=== PATIENT | female | born 1985 | race Caucasian/White ===

== ENCOUNTER 2019-05-05 16:32 | Emergency (ER) | payer OTHER, MEDICARE ==
--- NOTE | 2019-05-05 17:15 | RAD ---
Left foot 3 views HISTORY: Left foot injury. FINDINGS: Comminuted predominantly oblique fracture of the fifth metatarsal neck is present with 0.2 cm medial displacement of the major distal fragment. No evidence of intra-articular extension. Lisfranc joint alignment is anatomic. Plantar arch is maintained. Subtle irregular linear lucency extends through the lateral malleolus just below the level of the ank le mortise. IMPRESSION: Fifth metatarsal fracture. Probable nondisplaced fracture of the lateral malleolus. Correlation with point tenderness at the lat eral malleolus is required.
--- NOTE | 2019-05-05 18:39 | RAD ---
Right big toe 3 views HISTORY: Right toe injury. FINDINGS: Possible soft tissue swelling. Joint spaces are preserved. No acute fracture, dislocation, or aggressive osseous erosions. IMPRESSION: No acute osseous abnormalities are demonstrated.
[2019-05-05] MEDS ORDERED: Triple Antibiotic Oint 1 GM Packet ONE (18:58)
== END 2019-05-05 19:18 | disposition home or self-care (01) ==
LOC: ERS 16:32
DX: S92.352A Displaced fracture of fifth metatarsal bone, left foot, initial encounter for closed fracture (principal); S82.62XA Displaced fracture of lateral malleolus of left fibula, initial encounter for closed fracture; S90.211A Contusion of right great toe with damage to nail, initial encounter; F25.9 Schizoaffective disorder, unspecified; F32.9 Major depressive disorder, single episode, unspecified; W06.XXXA Fall from bed, initial encounter

== ENCOUNTER 2019-11-11 18:38 | Emergency (ER) | payer MEDICARE, OTHER ==
[2019-11-11 19:10] LABS: #Basophils 0.1 thou/uL (0.0-0.2); #Monocytes 0.3 thou/uL (0.11-0.59); #Neutrophils 2.4 thou/uL (1.40-6.50); %Basophils 1.5 % (0.0-1.0); %Eosinophils 0.9 % (0.0-10.0); %Lymphocytes 41.5 % (21.0-51.0); %Monocytes 6.3 % (0.0-10.0); %Neutrophils 49.8 % (42.0-75.0); Hemoglobin 12.7 g/dL (12.0-16.0); Mean Corpuscular HGB CONC 33.2 g/dL (32.0-36.0); Mean Corpuscular Hemoglobin 35.2 pg (27.0-31.0); Mean Platelet Volume 8.9 fL (7.4-10.4); Platelet Count 140 thou/uL (130-400); RBC Distribution Width 10.9 % (11.5-14.5); Red Blood Cell (RBC) Count 3.61 mill/uL (4.20-5.40); White Blood Cell (WBC) Count 4.7 thou/uL (4.8-10.8)
--- NOTE | 2019-11-11 19:16 | RAD ---
CHEST TWO VIEW: 11/11/19 HISTORY: Chest pain, shortness of breath. COMPARISON: None. FINDINGS: Lungs are clear. No pneumothorax or effusion. Cardiac silhouette and mediastinal contours are within normal limits. No acute osseous abnormality. IMPRESSION: No acute intrathoracic abnormality. POS: HOME
[2019-11-11 19:32] LABS: MDiff Complete? YES; Macrocytosis MODERATE=16-30 cells (100X) (0-5/hpf); Ovalocytes SLIGHT = 2-5 cells (100X) (0-1/hpf); Platelet Morphology Comment Appears Adequate; Polychromasia SLIGHT = 2-3 cells (100X) (0-2/hpf)
[2019-11-11 19:37] LABS: ALT (SGPT) Less than 7 U/L (8-55); AST (SGOT) 9 U/L (5-34); Alkaline Phosphatase 41 U/L (40-110); Anion Gap 10 mmol/L (10-20); BUN (Urea Nitrogen) 15 mg/dL (7.0-18.7); Bilirubin, Total 0.2 mg/dL (0.2-1.2); CK (CPK) 25 U/L (29-168); Calc. Creatinine Clearance 0 mL/min (70-130); Calcium 9.2 mg/dL (7.8-10.44); Carbon Dioxide 31 mmol/L (22-29); Chloride 104 mmol/L (98-107); Estimated GFR-MDRD Greater than 90; Globulin 2.9 g/dL (2.4-3.5); Glucose 100 mg/dL (70-105); Protein, Total 6.9 g/dL (6.0-8.3); Sodium 141 mmol/L (136-145)
[2019-11-11] MEDS ORDERED: HYDROcodone/Acetaminophen 5/325 mg Tablet ONE (22:16)
[2019-11-11] MEDS ORDERED: Mag-Al 1200 mg/1200 mg/30 ML UDCUP ONE (22:16)
[2019-11-11] MEDS ORDERED: Lidocaine Viscous Sol 2% 15 ml UD Cup ONE (22:16)
--- NOTE | 2019-11-11 22:41 | ULT ---
US Gallbladder RUQ HISTORY: Right upper quadrant pain. COMPARISON: None. FINDINGS: Real-time imaging of the right upper quadrant shows a normal-appearing gallbladder. The [facility] hnologist describes a negative ultrasound Luna sign. The common duct is 4 mm. The liver measures 17.2 cm in length. The pancreas is obscured. Right kidney is normal in size and not obstructed. IMPRESSION: Unremarkable right upper quadrant ultrasound.
--- NOTE | 2019-11-13 15:40 | EKG ---
Test Reason : Blood Pressure : / mmHG Vent. Rate : 076 BPM Atrial Rate : 076 BPM P-R Int : 106 ms QRS Dur : 096 ms QT Int : 382 ms P-R-T Axes : 049 054 033 degrees QTc Int : 429 ms Sinus rhythm with sinus arrhythmia with short NC Otherwise normal ECG Confirmed by PATO IBRAHIM M.D. ([id number]), editor news MICHI DURHAM ([id number]) on 11/13/2019 3:40:02 PM Referred By: Confirmed By:PATO IBRAHIM M.D.
== END 2019-11-11 23:22 | disposition home or self-care (01) ==
LOC: ERS 18:38
DX: R07.89 Other chest pain (principal); F25.9 Schizoaffective disorder, unspecified; F32.9 Major depressive disorder, single episode, unspecified; E55.9 Vitamin D deficiency, unspecified
CPT/HCPCS: 36415; 71046; 76705; 80053; 82550; 84484; 85025; 85379; 93005

== ENCOUNTER 2020-08-20 13:25 | Emergency (ER) | payer MEDICARE, MEDICAID ==
[2020-08-20 14:16] LABS: #Lymphocytes 0.7 thou/uL (1.20-3.40); #Monocytes 0.3 thou/uL (0.11-0.59); #Neutrophils 7.6 thou/uL (1.40-6.50); %Lymphocytes 7.8 % (21.0-51.0); %Monocytes 3.9 % (0.0-10.0); %Neutrophils 88.3 % (42.0-75.0); Hemoglobin 12.9 g/dL (12.0-16.0); Mean Corpuscular HGB CONC 34.8 g/dL (32.0-36.0); Mean Corpuscular Hemoglobin 37.3 pg (27.0-31.0); RBC Distribution Width 10.4 % (11.5-14.5); Red Blood Cell (RBC) Count 3.45 mill/uL (4.20-5.40); White Blood Cell (WBC) Count 8.6 thou/uL (4.8-10.8)
[2020-08-20 14:28] LABS: Acetaminophen Less than 6.0 mcg/mL (10.0-30.0); Alcohol Less than 10 mg/dL (Less than 10); Salicylate Less than 8.0 mg/dL (15.0-30.0)
[2020-08-20 14:31] LABS: ALT (SGPT) 11 U/L (8-55); AST (SGOT) 11 U/L (5-34); Albumin 4.1 g/dL (3.5-5.0); Alkaline Phosphatase 39 U/L (40-110); Anion Gap 17 mmol/L (10-20); BUN (Urea Nitrogen) 14 mg/dL (7.0-18.7); Bilirubin, Total 0.4 mg/dL (0.2-1.2); Calc. Creatinine Clearance 0 mL/min (70-130); Calcium 9.1 mg/dL (7.8-10.44); Carbon Dioxide 23 mmol/L (22-29); Chloride 103 mmol/L (98-107); Globulin 3.2 g/dL (2.4-3.5); Glucose 104 mg/dL (70-105); Protein, Total 7.3 g/dL (6.0-8.3); Sodium 139 mmol/L (136-145)
[2020-08-20 14:34] LABS: MDiff Complete? YES; Macrocytosis SLIGHT = 6-15 cells (100X) (0-5/hpf); Platelet Count 97 thou/uL (130-400); Platelet Morphology Comment Appears Decreased; Polychromasia SLIGHT = 2-3 cells (100X) (0-2/hpf)
[2020-08-20] MEDS ORDERED: Haloperidol Lactate 5 MG/ML VIAL ONE ×2 (15:12→17:09)
[2020-08-20 16:33] LABS: Bacteria/HPF None Seen HPF (None Seen); Bilirubin Negative (Negative); Blood, Urine 1+ (Negative); Clarity Turbid (Clear); Glucose, Urine (Dipstick) Normal (Negative); Ketone, Urine 40 mg/dL (Negative); Leukocyte Negative Leu/uL (Negative); Nitrite Negative (Negative); Protein, Urine (Dipstick) 300 mg/dL (Neg-Trace); Specific Gravity, Urine 1.031 (1.002-1.036); Squamous Epithelial 0-3 HPF (0-3); Urobilinogen 6 mg/dL (Less than 2); WBC/HPF Greater than 50 HPF (0-3)
[2020-08-20 16:40] LABS: Amphetamine Not Detected (NotDetected); Barbiturates Screen Not Detected (NotDetected); Benzodiazepine Screen Detected (NotDetected); Cocaine Metabolite Screen Not Detected (NotDetected); Medtox Control Line Valid? VALID (VALID); Medtox Reader # READER 1; Methadone Not Detected (NotDetected); Methamphetamine Not Detected (NotDetected); Opiate Screen Not Detected (NotDetected); Oxycodone Screen Not Detected (NotDetected); Phencyclidine (PCP) Not Detected (NotDetected); THC/Cannabinoid Screen Not Detected (NotDetected); Tricyclic Screen Not Detected (NotDetected)
[2020-08-20] MEDS ORDERED: Lorazepam 2 MG/ML VIAL ONE (17:09)
[2020-08-20] MEDS ORDERED: Ziprasidone 20 MG VIAL ONE (21:00)
[2020-08-20] MEDS ORDERED: Sterile Water 10 ML ONE (21:01)
[2020-08-21] MEDS ORDERED: diphenhydrAMINE 25 MG CAP ONE (03:31)
[2020-08-21] MEDS ORDERED: Haloperidol Lactate 5 MG/ML VIAL ONE ×2 (04:06→04:47)
[2020-08-21] MEDS ORDERED: Lorazepam 2 MG/ML VIAL ONE ×2 (04:47→14:41)
[2020-08-21] MEDS ORDERED: traZODone HCl 150 MG TAB PO PRN (06:55)
[2020-08-21] MEDS ORDERED: Lorazepam 2 MG/ML VIAL SLOW IVP SCH (07:00)
[2020-08-21] MEDS ORDERED: Haloperidol Lactate 5 MG/ML VIAL IM SCH (07:00)
[2020-08-21] MEDS ORDERED: [UNRECOGNIZED DRUG - OTHER] PO SCH (09:00)
[2020-08-21] MEDS ORDERED: ALPRAZolam 1 MG TAB PO SCH (09:00)
[2020-08-21] MEDS ORDERED: Escitalopram Oxalate 10 mg Tablet PO SCH (09:00)
[2020-08-21] MEDS ORDERED: Aripiprazole 10 MG TAB PO SCH (09:00)
[2020-08-21] MEDS ORDERED: VITAMIN D3 PO SCH (09:00)
[2020-08-21] MEDS ORDERED: Sterile Water 10 ML ONE ×2 (09:40→14:11)
[2020-08-21] MEDS ORDERED: Acetaminophen 500 MG TAB ONE ×2 (09:40→19:54)
[2020-08-21] MEDS ORDERED: Ziprasidone 20 MG VIAL ONE ×2 (09:40→14:10)
[2020-08-21] MEDS ORDERED: Oxybutynin 5 MG TAB PO SCH (21:00)
[2020-08-22] MEDS ORDERED: ALPRAZolam 0.5 MG TAB ONE (00:29)
[2020-08-22] MEDS ORDERED: Divalproex Sodium 250 MG (DR) TAB ONE (09:08)
[2020-08-22] MEDS ORDERED: ALPRAZolam 1 MG TAB PO SCH (09:15)
[2020-08-22] MEDS ORDERED: Ziprasidone 20 MG CAP ONE (14:18)
[2020-08-22] MEDS ORDERED: Lorazepam 1 MG TAB ONE (20:04)
[2020-08-22] MEDS ORDERED: traZODone HCl 50 MG TAB ONE (20:04)
[2020-08-22] MEDS ORDERED: risperiDONE 1 MG TAB ONE (20:13)
[2020-08-22] MEDS ORDERED: Haloperidol 1 MG TAB ONE (20:30)
[2020-08-22] MEDS ORDERED: Nitrofurantoin Monohyd/M-Cryst 100 MG CAP PO SCH (21:00)
[2020-08-22] MEDS ORDERED: ALPRAZolam 0.5 MG TAB PO SCH (21:00)
[2020-08-23] MEDS ORDERED: Lorazepam 2 MG/ML VIAL ONE (05:40)
[2020-08-23] MEDS ORDERED: Haloperidol Lactate 5 MG/ML VIAL ONE (05:40)
[2020-08-23] MEDS ORDERED: ALPRAZolam 0.5 MG TAB PO SCH (09:00)
== END 2020-08-23 11:30 ==
LOC: ERS 13:25
DX: R45.850 Homicidal ideations (principal); S40.822A Blister (nonthermal) of left upper arm, initial encounter; S40.821A Blister (nonthermal) of right upper arm, initial encounter; E55.9 Vitamin D deficiency, unspecified; Z79.899 Other long term (current) drug therapy; Z79.01 Long term (current) use of anticoagulants; W22.01XA Walked into wall, initial encounter
CPT/HCPCS: 36415; 51701; 80053; 80306; 80307; 81003; 81015; 84443; 85025; 96372; 99285; J1630; J2060; J3486

== ENCOUNTER 2020-12-13 19:27 | Emergency (ER) | payer MEDICARE, MEDICAID ==
[2020-12-13 21:21] LABS: Hemoglobin 12.3 g/dL (12.0-16.0); Mean Corpuscular HGB CONC 33.5 g/dL (32.0-36.0); Mean Corpuscular Hemoglobin 36.4 pg (27.0-31.0); RBC Distribution Width 12.2 % (11.5-14.5); Red Blood Cell (RBC) Count 3.38 mill/uL (4.20-5.40)
[2020-12-13 21:23] LABS: #Eosinphils 0.1 thou/uL (0.0-0.7); #Lymphocytes 1.4 thou/uL (1.20-3.40); #Monocytes 0.5 thou/uL (0.11-0.59); %Basophils 0.3 % (0.0-1.0); %Eosinophils 0.9 % (0.0-10.0); %Lymphocytes 17.5 % (21.0-51.0); %Monocytes 6.1 % (0.0-10.0); %Neutrophils 75.2 % (42.0-75.0); ALT (SGPT) Less than 7 U/L (8-55); AST (SGOT) 13 U/L (5-34); Albumin 3.6 g/dL (3.5-5.0); Alkaline Phosphatase 46 U/L (40-110); Anion Gap 12 mmol/L (10-20); BUN (Urea Nitrogen) 18 mg/dL (7.0-18.7); Bilirubin, Total Less than 0.2 mg/dL (0.2-1.2); Calc. Creatinine Clearance 0 mL/min (70-130); Calcium 8.7 mg/dL (7.8-10.44); Carbon Dioxide 27 mmol/L (22-29); Chloride 106 mmol/L (98-107); Globulin 3.4 g/dL (2.4-3.5); Glucose 93 mg/dL (70-105); MDiff Complete? YES; Macrocytosis SLIGHT = 6-15 cells (100X) (0-5/hpf); Magnesium 1.8 mg/dL (1.6-2.6); Mean Platelet Volume 8.8 fL (7.4-10.4); Platelet Count 134 thou/uL (130-400); Potassium 4.2 mmol/L (3.5-5.1); Sodium 141 mmol/L (136-145)
[2020-12-13 22:38] LABS: Bilirubin Negative (Negative); Blood, Urine Negative (Negative); Clarity Clear (Clear); Glucose, Urine (Dipstick) Normal (Negative); Ketone, Urine Negative (Negative); Leukocyte Negative Leu/uL (Negative); Nitrite Negative (Negative); Protein, Urine (Dipstick) Negative (Neg-Trace); Specific Gravity, Urine 1.021 (1.002-1.036); Urobilinogen Normal mg/dL (Less than 2); pH, Urine 6.5 (5.0-9.0)
[2020-12-13 22:40] LABS: Pregnancy Test - Urine (BHCG) Negative (Negative); Pregu Control Background? CLEAR/WHITE (CLR/WHITE); Pregu Control Bar Appear? YES (CONTROL BAR); Specific Gravity 1.021 (1.002-1.036)
== END 2020-12-13 23:28 | disposition home or self-care (01) ==
LOC: ERS 19:27
DX: R56.9 Unspecified convulsions (principal); Z79.899 Other long term (current) drug therapy
CPT/HCPCS: 36415; 70450; 71046; 80053; 81003; 81025; 83735; 84146; 84484; 85025; 93005

== ENCOUNTER 2020-12-22 12:24 | Outpatient (CLI) | payer MEDICARE, MEDICAID | END 2020-12-22 12:25 | disposition home or self-care (01) | LOC: EEG 12:24 | PROVIDERS: ATTEND Nurse Practitioner Acute Care | DX: R56.9 Unspecified convulsions (principal) | CPT/HCPCS: 95816 ==

== ENCOUNTER 2022-01-22 11:59 | Outpatient (CLI) | payer MEDICARE, OTHER | END 2022-01-22 12:00 | disposition home or self-care (01) | LOC: BICULT 11:59 | PROVIDERS: ATTEND Urology | DX: R31.9 Hematuria, unspecified (principal) | CPT/HCPCS: 76770 ==

== ENCOUNTER 2022-01-24 18:04 | Emergency (ER) | payer MEDICARE, OTHER | END 2022-01-24 21:09 | disposition home or self-care (01) | LOC: ERS 18:04 | DX: S09.90XA Unspecified injury of head, initial encounter (principal); S00.212A Abrasion of left eyelid and periocular area, initial encounter; S80.211A Abrasion, right knee, initial encounter; W01.198A Fall on same level from slipping, tripping and stumbling with subsequent striking against other object, initial encounter | CPT/HCPCS: 70450 ==